=== PATIENT | female | born 1990 | race African-American/Black ===

== ENCOUNTER 2022-01-21 17:44 | Emergency (ER) | payer OTHER ==
[~2022-01-21] VITALS: Ht 165.1 cm; Wt 91.0 kg
[2022-01-21 19:54] LABS: MEAN CORPUSCULAR HEMOGLOBIN 22.9 pg (28.0-32.0); MEAN CORPUSCULAR VOLUME 71.8 fL (81.0-99.0); MEAN PLATELET VOLUME 6.9 fl (7.4-10.4); PLATELET 323 x1000/uL (130-400); RED BLOOD CELL COUNT 3.48 mill/uL (4.2-5.4); RED CELL DISTRIBUTION WIDTH 19.3 % (11.6-14.6)
[2022-01-21 20:00] LABS: CHLORIDE 105 mEq/L (98-107)
[2022-01-21 20:04] LABS: INR 1.1; PROTHROMBIN TIME 11.3 sec (9.6-11.0)
[2022-01-21 20:05] LABS: HCG SCREEN NEGATIVE
[2022-01-21 20:11] LABS: PLATELET ESTIMATE NORMAL
[2022-01-21] MEDS ORDERED: IOHEXOL-350 100 ML BOTTLE ONE (21:07)
[2022-01-21] MEDS ORDERED: SODIUM CHLORIDE 0.9% 1,000 ML IV ONE (22:00)
[2022-01-22] MEDS ORDERED: PIPERACILLIN/TAZOBACTAM 3.375GM/50ML PREMIX IV NR (00:45)
[2022-01-22 02:19] LABS: HEMOGLOBIN 7.7 g/dL (12.0-16.0)
[2022-01-22 04:00] VITALS: BP 131/87
== END 2022-01-22 05:32 | disposition short-term general hospital (02) ==
LOC: ER 17:44
DX: R55 Syncope and collapse (principal); D64.9 Anemia, unspecified; D72.829 Elevated white blood cell count, unspecified; Z98.890 Other specified postprocedural states; Z20.822 Contact with and (suspected) exposure to COVID-19
CPT/HCPCS: 36415; 71045; 71275; 74174; 80053; 83690; 84484; 84703; 85014; 85018; 85025; 85610; 86850; 86900; 86901; 87426; 93005; 96361; 96365; 99285; C9803; J2543; J7030; Q9967